=== PATIENT | female | born 1925 | race American Indian/Alaskan Native ===

== ENCOUNTER 2016-11-15 09:02 | Emergency (ER) | payer MEDICARE, MEDICAID ==
--- NOTE | 2016-11-15 09:19 | EDM.PDOC ---
<Robert Ramos Jonnathan - Last Filed: 11/15/16 12:45> ED HPI GENERAL MEDICAL PROBLEM - General Chief Complaint: Fever Stated Complaint: IN BY AMBULANCE Time Seen by Provider: 11/15/16 09:14 Source of Information: Reports: Family, Old records, RN, RN notes reviewed - Related Data Allergies Allergy/AdvReac Type Severity Reaction Status Date / Time Penicillins Allergy Cannot Verified 05/09/16 19:11 Remember Home Meds: Home Meds Aspirin [Ecotrin] 81 mg PO DAILY 10/19/13 [History] Gabapentin [Neurontin] 100 mg PO DAILY 03/07/16 [History] Simvastatin [Zocor] 20 mg PO BEDTIME 03/07/16 [History] Acetaminophen [Tylenol] 650 mg PO Q4H PRN 03/25/16 [History] Gabapentin [Neurontin] 200 mg PO BEDTIME 11/15/16 [History] Levothyroxine Sodium 1 tab PO DAILY 11/15/16 [History] amLODIPine [Norvasc] 5 mg PO DAILY 11/15/16 [History] Course - Vital Signs Last Recorded V/S: Last Vital Signs Temp 98.8 F 11/15/16 09:05 Pulse 76 11/15/16 09:05 Resp 16 11/15/16 09:05 BP 127/59 L 11/15/16 09:05 Pulse Ox 95 11/15/16 09:05 - Orders/Labs/Meds Orders: Active Orders 24 hr Category Date Time Status Peripheral IV Care [RC] . DIRECTED Care 11/15/16 10:02 Active Sodium Chloride 0.9% [Normal Saline] 1,000 ml Med 11/15/16 10:00 Active IV .BOLUS Sodium Chloride 0.9% [Saline Flush] Med 11/15/16 10:02 Active 10 ml FLUSH ASDIRECTED PRN Peripheral IV Insertion Adult [OM.PC] Stat Oth 11/15/16 10:02 Ordered Medication Orders Sodium Chloride (Normal Saline) 1,000 mls @ 250 mls/hr IV .BOLUS ONE Stop: 11/15/16 13:59 Last Admin: 11/15/16 10:37 Dose: 250 mls/hr Sodium Chloride (Saline Flush) 10 ml FLUSH ASDIRECTED PRN PRN Reason: Keep Vein Open Last Admin: 11/15/16 10:38 Dose: 10 ml Labs: Laboratory Tests 11/15/16 11/15/16 11/15/16 Range/Units 09:26 09:26 11:44 WBC 10.7 H (5.0-10.0) 10^3/uL RBC 3.60 L (4.2-5.4) 10^6/uL Hgb 10.7 L (12.0-16.0) g/dL Hct 34.4 L (37.0-47.0) % MCV 95.6 (80-100) fL MCH 29.7 (27.0-34.0) pg MCHC 31.1 L (33.0-35.0) g/dL Plt Count 243 (150-450) 10^3/uL Neut % (Auto) 82.7 H (42.2-75.2) % Lymph % (Auto) 7.1 L (20.5-50.1) % [place] % (Auto) 10.1 H (2-8) % Eos % (Auto) 0.0 L (1.0-3.0) % Baso % (Auto) 0.1 (0.0-1.0) % Sodium 136 (135-145) mmol/L Potassium 4.2 (3.6-5.0) mmol/L Chloride 101 (101-111) mmol/L Carbon Dioxide 25.0 (21.0-31.0) mmol/L Anion Gap 14.2 BUN 25 H (7-18) mg/dL Creatinine 1.1 (0.6-1.3) mg/dL Est Cr Clr Drug Dosing TNP Estimated GFR (MDRD) 47 BUN/Creatinine Ratio 22.72 Glucose 105 (74-105) mg/dL Calcium 8.2 L (8.4-10.2) mg/dl Total Bilirubin 0.7 (0.2-1.0) mg/dL AST 27 (10-42) IU/L ALT 13 (10-60) IU/L Alkaline Phosphatase 93 (42-121) IU/L B-Natriuretic Peptide 335 H (0-100) pg/ml Total Protein 6.9 (6.7-8.2) g/dl Albumin 3.2 (3.2-5.5) g/dl Globulin 3.7 Albumin/Globulin Ratio 0.86 Urine Color Yellow (YELLOW) Urine Appearance Clear (CLEAR) Urine pH 5.5 (5.0-9.0) Ur Specific [place] 1.025 (1.005-1.030) Urine Protein 30 H (NEGATIVE) Urine Glucose (UA) Negative (NEGATIVE) Urine Ketones 15 H (NEGATIVE) Urine Occult Blood Negative (NEGATIVE) Urine Nitrite Negative (NEGATIVE) Urine Bilirubin Negative (NEGATIVE) Urine Urobilinogen 1.0 (0.2-1.0) mg/dL Ur Leukocyte Esterase Negative (NEGATIVE) Urine RBC Not seen /HPF Urine WBC 0-5 (0-5/HPF) /HPF Ur Epithelial Cells Rare /HPF Urine Bacteria Few (0-FEW/HPF) /HPF Meds: Medications Generic Name Dose Route Start Last Admin Trade Name Freq PRN Reason Stop Dose Admin Sodium Chloride 1,000 mls @ 250 mls/hr 11/15/16 10:00 11/15/16 10:37 Normal Saline IV 11/15/16 13:59 250 mls/hr .BOLUS ONE Administration Sodium Chloride 10 ml 11/15/16 10:02 11/15/16 10:38 Saline Flush FLUSH 10 ml ASDIRECTED PRN Administration Keep Vein Open Discontinued Medications Generic Name Dose Route Start Last Admin Trade Name Freq PRN Reason Stop Dose Admin Oseltamivir Phosphate 75 mg 11/15/16 10:33 11/15/16 10:42 Tamiflu PO 11/15/16 10:34 75 mg ONETIME ONE Administration - Re-Assessments/Exams Free Text/Narrative Re-Assessment/Exam: 11/15/16 11:49 FOR THIS ENCOUNTER THE PATIENT WAS SEEN IN CONJUNCTION WITH [facility] STUDENT SHAUNNA GONZALES. ALL PATIENT CARE AND/OR PROCEDURE(S), DIAGNOSTIC ORDERS, MEDICATION(S) AND TREATMENT ORDERS, DISPOSITION ORDERS/PLANNING, AND DISCHARGE/FOLLOW UP INSTRUCTIONS WERE UNDER MY DIRECT SUPERVISION. gbd Departure - Departure Time of Disposition: 12:45 Disposition: Home, Self-Care 01 Condition: fair Clinical Impression: Influenza B Instructions: Influenza, Adult, [id number] Forms: ED Department Discharge Additional Instructions: Rx: Tamiflu 75mg Follow up in clinic in 3 to 5 days for recheck if needed. Return to ER if worse at any time. - My Orders Last 24 Hours: My Active Orders 11/15/16 10:00 Sodium Chloride 0.9% [Normal Saline] 1,000 ml IV .BOLUS 11/15/16 10:02 Peripheral IV Care [RC] . DIRECTED Sodium Chloride 0.9% [Saline Flush] 10 ml FLUSH ASDIRECTED PRN Peripheral IV Insertion Adult [OM.PC] Stat - Assessment/Plan Last 24 Hours: My Active Orders 11/15/16 10:00 Sodium Chloride 0.9% [Normal Saline] 1,000 ml IV .BOLUS 11/15/16 10:02 Peripheral IV Care [RC] . DIRECTED Sodium Chloride 0.9% [Saline Flush] 10 ml FLUSH ASDIRECTED PRN Peripheral IV Insertion Adult [OM.PC] Stat <Shaunna Gonzales - Last Filed: 11/15/16 13:15> ED HPI GENERAL MEDICAL PROBLEM - General Source of Information: Reports: Patient, EMS History Limitations: Reports: No limitations - History of Present Illness INITIAL COMMENTS - FREE TEXT/NARRATIVE: Patient presents to the ER this morning per [facility] with c/o fever and weakness since yesterday. EMS states her temp was 99 at home. Patient states she began feeling weak and not well last night. She states her appetite is decreased. She admits to nausea but no vomiting. Denies diarrhea, recent illness, sob, chest pain, or pain otherwise. Onset: gradual Onset Date: 11/14/16 Duration: Getting worse Location: Reports: generalized Quality: Reports: Other (weakness) Severity: moderate Improves with: Reports: None Worsens with: Reports: None Associated Symptoms: Reports: cough, fever/chills, loss of appetite, nausea/ vomiting (nausea, no vomiting), weakness. Denies: chest pain, shortness of breath Past Medical History HEENT History: Reports: Hard of hearing Cardiovascular History: Reports: High cholesterol Gastrointestinal History: Reports: Cholelithiasis Genitourinary History: Reports: UTI, recurrent Neurological History: Reports: CVA Endocrine/Metabolic History: Reports: Hyperthyroidism - Past Surgical History HEENT Surgical History: Reports: Cataract surgery GI Surgical History: Reports: Cholecystectomy Social & Family History - Family History Family Medical History: Noncontributory - Tobacco Use Smoking Status *Q: Never Smoker Years of Tobacco use: 67 Used Tobacco, but Quit: Yes Month Tobacco Last Used: december 2015 Second Hand Smoke Exposure: No - Alcohol Use Days Per Week of Alcohol Use: 0 - Recreational Drug Use Recreational Drug Use: No ED ROS GENERAL - Review of Systems Review Of Systems: ROS reveals no pertinent complaints other than HPI. ED EXAM, GENERAL - Physical Exam Exam: See Below Exam Limited By: No limitations General Appearance: alert, thin Eye Exam: bilateral eye: normal inspection Ears: normal external exam, normal canal, hearing grossly normal, normal TMs Ear Exam: bilateral ear: auricle normal, canal normal, TM normal Nose: normal inspection, normal mucosa, no blood Throat/Mouth: No airway compromise, Other (dry mucous membranes) Head: atraumatic, normocephalic Neck: normal inspection, supple, non-tender, full range of motion Respiratory/Chest: no respiratory distress, no accessory muscle use, chest non- tender, crackles (left base) Cardiovascular: normal peripheral pulses, regular rate, rhythm, no edema, no gallop, no JVD, no murmur, no rub Peripheral Pulses: 2+: radial (L), radial (R) GI/Abdominal: normal bowel sounds, soft, non tender, no organomegaly, no distention, no abnormal bruit, no mass (Female) Exam: Deferred Rectal (Female) Exam: Deferred Back Exam: normal inspection, full range of motion, NT Extremities: normal inspection, normal range of motion, non-tender, normal capillary refill, no pedal edema Neurological: alert, oriented, CN II-XII intact, normal cognition Psychiatric: normal affect, normal mood Skin Exam: Warm, Dry, Intact, Normal color, No rash Lymphatic: no adenopathy Course - Vital Signs Last Recorded V/S: Last Vital Signs Temp 98.8 F 11/15/16 09:05 Pulse 76 11/15/16 09:05 Resp 16 11/15/16 09:05 BP 127/59 L 11/15/16 09:05 Pulse Ox 95 11/15/16 09:05 - Orders/Labs/Meds Orders: Active Orders 24 hr Category Date Time Status Peripheral IV Care [RC] . DIRECTED Care 11/15/16 10:02 Active Sodium Chloride 0.9% [Normal Saline] 1,000 ml Med 11/15/16 10:00 Active IV .BOLUS Sodium Chloride 0.9% [Saline Flush] Med 11/15/16 10:02 Active 10 ml FLUSH ASDIRECTED PRN Peripheral IV Insertion Adult [OM.PC] Stat Oth 11/15/16 10:02 Ordered Medication Orders Sodium Chloride (Normal Saline) 1,000 mls @ 250 mls/hr IV .BOLUS ONE Stop: 11/15/16 13:59 Last Admin: 11/15/16 10:37 Dose: 250 mls/hr Sodium Chloride (Saline Flush) 10 ml FLUSH ASDIRECTED PRN PRN Reason: Keep Vein Open Last Admin: 11/15/16 10:38 Dose: 10 ml Labs: Laboratory Tests 11/15/16 11/15/16 11/15/16 Range/Units 09:26 09:26 11:44 WBC 10.7 H (5.0-10.0) 10^3/uL RBC 3.60 L (4.2-5.4) 10^6/uL Hgb 10.7 L (12.0-16.0) g/dL Hct 34.4 L (37.0-47.0) % MCV 95.6 (80-100) fL MCH 29.7 (27.0-34.0) pg MCHC 31.1 L (33.0-35.0) g/dL Plt Count 243 (150-450) 10^3/uL Neut % (Auto) 82.7 H (42.2-75.2) % Lymph % (Auto) 7.1 L (20.5-50.1) % [place] % (Auto) 10.1 H (2-8) % Eos % (Auto) 0.0 L (1.0-3.0) % Baso % (Auto) 0.1 (0.0-1.0) % Sodium 136 (135-145) mmol/L Potassium 4.2 (3.6-5.0) mmol/L Chloride 101 (101-111) mmol/L Carbon Dioxide 25.0 (21.0-31.0) mmol/L Anion Gap 14.2 BUN 25 H (7-18) mg/dL Creatinine 1.1 (0.6-1.3) mg/dL Est Cr Clr Drug Dosing TNP Estimated GFR (MDRD) 47 BUN/Creatinine Ratio 22.72 Glucose 105 (74-105) mg/dL Calcium 8.2 L (8.4-10.2) mg/dl Total Bilirubin 0.7 (0.2-1.0) mg/dL AST 27 (10-42) IU/L ALT 13 (10-60) IU/L Alkaline Phosphatase 93 (42-121) IU/L B-Natriuretic Peptide 335 H (0-100) pg/ml Total Protein 6.9 (6.7-8.2) g/dl Albumin 3.2 (3.2-5.5) g/dl Globulin 3.7 Albumin/Globulin Ratio 0.86 Urine Color Yellow (YELLOW) Urine Appearance Clear (CLEAR) Urine pH 5.5 (5.0-9.0) Ur Specific [place] 1.025 (1.005-1.030) Urine Protein 30 H (NEGATIVE) Urine Glucose (UA) Negative (NEGATIVE) Urine Ketones 15 H (NEGATIVE) Urine Occult Blood Negative (NEGATIVE) Urine Nitrite Negative (NEGATIVE) Urine Bilirubin Negative (NEGATIVE) Urine Urobilinogen 1.0 (0.2-1.0) mg/dL Ur Leukocyte Esterase Negative (NEGATIVE) Urine RBC Not seen /HPF Urine WBC 0-5 (0-5/HPF) /HPF Ur Epithelial Cells Rare /HPF Urine Bacteria Few (0-FEW/HPF) /HPF Meds: Medications Generic Name Dose Route Start Last Admin Trade Name Freq PRN Reason Stop Dose Admin Sodium Chloride 1,000 mls @ 250 mls/hr 11/15/16 10:00 11/15/16 10:37 Normal Saline IV 11/15/16 13:59 250 mls/hr .BOLUS ONE Administration Sodium Chloride 10 ml 11/15/16 10:02 11/15/16 10:38 Saline Flush FLUSH 10 ml ASDIRECTED PRN Administration Keep Vein Open Discontinued Medications Generic Name Dose Route Start Last Admin Trade Name Freq PRN Reason Stop Dose Admin Oseltamivir Phosphate 75 mg 11/15/16 10:33 11/15/16 10:42 Tamiflu PO 11/15/16 10:34 75 mg ONETIME ONE Administration - Radiology Interpretation Free Text/Narrative:: CXR: Abnormal, Suspicious developing pneumonitis right lung. See Rad report. CT completed. Chest CT: No acute findings. See Rad report. - My Orders Last 24 Hours: My Active Orders 11/15/16 10:00 Sodium Chloride 0.9% [Normal Saline] 1,000 ml IV .BOLUS 11/15/16 10:02 Peripheral IV Care [RC] . DIRECTED Sodium Chloride 0.9% [Saline Flush] 10 ml FLUSH ASDIRECTED PRN Peripheral IV Insertion Adult [OM.PC] Stat - Assessment/Plan Last 24 Hours: My Active Orders 11/15/16 10:00 Sodium Chloride 0.9% [Normal Saline] 1,000 ml IV .BOLUS 11/15/16 10:02 Peripheral IV Care [RC] . DIRECTED Sodium Chloride 0.9% [Saline Flush] 10 ml FLUSH ASDIRECTED PRN Peripheral IV Insertion Adult [OM.PC] Stat
--- NOTE | 2016-11-15 09:45 | CR ---
Clinical history: 89-year-old female with cough and fever. Interpretation: 1. Coarse bronchitic pattern accentuated by less than optimal inspiratory effort. 2. *Subtle asymmetric new infiltrate and/or nodular density in the periphery of the right lung (comp ared to 06 May 2016 exam). Suggest considering unenhanced CT scan of the chest. 3. Normal cardiac silhouette without new cephalization of flow, signs of alveolar edema or dependent pleural effusion. 4. No other lung mass or focal lobar consolidation. 5. No pleural effusion, pneumothorax or free subdiaphragmatic air. CONCLUSION: Abnormal. Suspicious developing pneumonitis right lung. Clinical?
[2016-11-15 09:51] LABS: CHLORIDE,CL 101 mmol/L (101-111); SODIUM,NA 136 mmol/L (135-145)
[2016-11-15 09:55] VITALS: BP 127/59
[2016-11-15] MEDS ORDERED: Sodium Chloride 0.9% 1,000 ML IV ONE (10:00)
[2016-11-15] MEDS ORDERED: Sodium Chloride 0.9% 10 ML Syringe FLUSH PRN (10:02)
[2016-11-15] MEDS ORDERED: Oseltamivir 75 MG Cap PO ONE (10:33)
--- NOTE | 2016-11-15 13:02 | CT ---
CLINICAL HISTORY: 89-year-old dehydrated female with harsh cough and influenza. Subt le asymmetric "new density right lower lobe" on PA CXR. SCAN TECHNIQUE: Volume acquisition of data from an unenhanced CT scan of the chest and abdomen karen hall with the patient lying supine on the Siemens multislice CT scanner [place], [place]. All data archived in the PACS system for storage, reformatting and study (lung/m ediastinal/abdominal soft tissue windows). INTERPRETATION: 1. Cardiomegaly and dense atheromatous calcifications ectatic dorsal aorta. No cephalization of vascular flow, signs of alveolar edema or dependent effusion. 2. Abnormal patchy atelectasis/infiltrate anterior segment right lower lobe. 3. Some peribronchial "cuffing" but no lung mass, hilar lymphadenopathy or other focal lobar consoli dation. 4. Hugely distended gallbladder right upper quadrant and multiple intraluminal calcified gallstones, most of them impacted at the gallbladder neck. Normal liver and no biliary duct dilatation. Apparen t duodenal diverticulum. 5. 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 No dissection. 6. Osteoporosis dorsal lumbar spine and insufficiency fracture (vertebra plana) T12 body. 7. Bilateral lower pole renal cysts. No signs of obstructive uropathy. CONCLUSION: Patchy right lower lobe atelectasis. *Cholelithiasis and distended gallbladder. T12 thor acic vertebral body fracture. Osteoporosis. Duodenal diverticulum. Cardiomegaly.
== END 2016-11-15 13:26 | disposition home or self-care (01) ==
LOC: DL.ED 09:02
DX: J10.1 Influenza due to other identified influenza virus with other respiratory manifestations (principal); E78.00 Pure hypercholesterolemia, unspecified; E03.9 Hypothyroidism, unspecified; Z88.1 Allergy status to other antibiotic agents; Z79.82 Long term (current) use of aspirin; Z79.899 Other long term (current) drug therapy; Z90.49 Acquired absence of other specified parts of digestive tract
CPT/HCPCS: 36415; 71010; 71250; 80053; 81001; 83880; 85025; 87804; 96360; 96361; 99284; A9270; J7030; J7050; 99283

== ENCOUNTER 2016-11-16 18:56 | Emergency (ER) | payer MEDICARE, MEDICAID ==
--- NOTE | 2016-11-16 19:25 | EDM.PDOC ---
ED HPI RENAL/ - General Chief Complaint: Genitourinary Problem Stated Complaint: IN BY AMB Time Seen by Provider: 11/16/16 19:15 Source of Information: Reports: Patient History Limitations: Reports: No limitations - History of Present Illness INITIAL COMMENTS - FREE TEXT/NARRATIVE: This 89 yo female patient reports to the ED due to hematuria. The patient was seen in the ED yesterday and diagnosed with Influenza B is currently on antivirals. The patient reports she started to notice some blood in her urine last night. The patient reports she has been staying at the [facility] for the past 2 1/2 days due to some remodeling at her house. The patient reports she moved back into her home today. The patient lives with her son and his girlfriend at her home. The patient denies any pain with urination. 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) (Tamiflu) - Related Data Allergies/ADRs: Allergies Allergy/AdvReac Type Severity Reaction Status Date / Time Penicillins Allergy Cannot Verified 11/16/16 19:04 Remember Home Meds: Home Meds Aspirin [Ecotrin] 81 mg PO DAILY 10/19/13 [History] Gabapentin [Neurontin] 100 mg PO DAILY 03/07/16 [History] Simvastatin [Zocor] 20 mg PO BEDTIME 03/07/16 [History] Acetaminophen [Tylenol] 650 mg PO Q4H PRN 03/25/16 [History] Gabapentin [Neurontin] 200 mg PO BEDTIME 11/15/16 [History] Levothyroxine Sodium 1 tab PO DAILY 11/15/16 [History] amLODIPine [Norvasc] 5 mg PO DAILY 11/15/16 [History] Past Medical History HEENT History: Reports: Hard of hearing Cardiovascular History: Reports: High cholesterol Gastrointestinal History: Reports: Cholelithiasis Genitourinary History: Reports: UTI, recurrent Neurological History: Reports: CVA Endocrine/Metabolic History: Reports: Hyperthyroidism - Past Surgical History HEENT Surgical History: Reports: Cataract surgery GI Surgical History: Reports: Cholecystectomy Social & Family History - Family History Family Medical History: Noncontributory - Tobacco Use Smoking Status *Q: Never Smoker Years of Tobacco use: 67 Used Tobacco, but Quit: Yes Month Tobacco Last Used: december 2015 Second Hand Smoke Exposure: No - Caffeine Use Caffeine Use: Reports: Soda - Alcohol Use Days Per Week of Alcohol Use: 0 - Recreational Drug Use Recreational Drug Use: No ED ROS GENERAL - Review of Systems Review Of Systems: See Below Constitutional: Reports: no symptoms HEENT: Reports: No symptoms Respiratory: Reports: cough Cardiovascular: Reports: No symptoms Endocrine: Reports: no symptoms GI/Abdominal: Reports: No symptoms : Reports: hematuria Musculoskeletal: Reports: no symptoms Skin: Reports: no symptoms Neurological: Reports: no symptoms Psychiatric: Reports: No symptoms Hematologic/Lymphatic: Reports: no symptoms Immunologic: Reports: no symptoms ED EXAM, RENAL/ - Physical Exam Exam: See Below Exam Limited By: No limitations General Appearance: alert, WD/WN, mild distress, thin Eye Exam: bilateral eye: EOMI, normal inspection, PERRL Ears: normal external exam, normal canal, hearing grossly normal, normal TMs Nose: normal inspection, normal mucosa, no blood Throat/Mouth: Normal inspection, Normal lips, Normal teeth, Normal gums, Normal oropharynx, Normal voice, No airway compromise Head: atraumatic, normocephalic Neck: normal inspection, supple, non-tender, full range of motion Respiratory/Chest: no respiratory distress, lungs clear, normal breath sounds, no accessory muscle use, chest non-tender Cardiovascular: normal peripheral pulses, regular rate, rhythm, no edema, no gallop, no JVD, no murmur, no rub GI/Abdominal: normal bowel sounds, soft, non tender, no organomegaly, no distention, no abnormal bruit, no mass (Female) Exam: Other (nursing staff report the patient had toilet paper in her kim area, but no current bleeding while getting a urine sample by catheter. ) Rectal (Female) Exam: Deferred Back Exam: normal inspection, full range of motion, NT Extremities: normal inspection, normal range of motion, non-tender, normal capillary refill, no pedal edema Neurological: alert, oriented, CN II-XII intact, normal cognition, normal gait, normal reflexes, no motor/sensory deficits Psychiatric: normal affect, normal mood Skin Exam: Warm, Dry, Intact, Normal color, No rash Lymphatic: no adenopathy Course - Vital Signs Last Recorded V/S: Last Vital Signs Temp 36.8 C 03/03/17 19:49 Pulse 72 11/16/16 19:49 Resp 18 11/16/16 19:49 BP 113/57 L 11/16/16 19:49 Pulse Ox 97 11/16/16 19:49 - Orders/Labs/Meds Labs: Laboratory Tests 11/16/16 11/16/16 11/16/16 Range/Units 19:11 19:30 19:30 WBC 6.0 (5.0-10.0) 10^3/uL RBC 3.50 L (4.2-5.4) 10^6/uL Hgb 10.5 L (12.0-16.0) g/dL Hct 33.4 L (37.0-47.0) % MCV 95.4 (80-100) fL MCH 30.0 (27.0-34.0) pg MCHC 31.4 L (33.0-35.0) g/dL Plt Count 208 (150-450) 10^3/uL Neut % (Auto) 71.3 (42.2-75.2) % Lymph % (Auto) 14.5 L (20.5-50.1) % [place] % (Auto) 13.7 H (2-8) % Eos % (Auto) 0.2 L (1.0-3.0) % Baso % (Auto) 0.3 (0.0-1.0) % Sodium 135 (135-145) mmol/L Potassium 4.1 (3.6-5.0) mmol/L Chloride 100 L (101-111) mmol/L Carbon Dioxide 26.0 (21.0-31.0) mmol/L Anion Gap 13.1 BUN 24 H (7-18) mg/dL Creatinine 0.8 (0.6-1.3) mg/dL Est Cr Clr Drug Dosing 34.24 mL/min Estimated GFR (MDRD) > 60 BUN/Creatinine Ratio 30.00 Glucose 87 (74-105) mg/dL Calcium 8.0 L (8.4-10.2) mg/dl Total Bilirubin 0.4 (0.2-1.0) mg/dL AST 31 (10-42) IU/L ALT 14 (10-60) IU/L Alkaline Phosphatase 87 (42-121) IU/L Total Protein 6.8 (6.7-8.2) g/dl Albumin 3.1 L (3.2-5.5) g/dl Globulin 3.7 Albumin/Globulin Ratio 0.84 Urine Color Yellow (YELLOW) Urine Appearance Slightly cloudy (CLEAR) Urine pH 6.5 (5.0-9.0) Ur Specific [place] 1.020 (1.005-1.030) Urine Protein 30 H (NEGATIVE) Urine Glucose (UA) Negative (NEGATIVE) Urine Ketones Negative (NEGATIVE) Urine Occult Blood Negative (NEGATIVE) Urine Nitrite Negative (NEGATIVE) Urine Bilirubin Negative (NEGATIVE) Urine Urobilinogen >=8.0 H (0.2-1.0) mg/dL Ur Leukocyte Esterase Negative (NEGATIVE) Urine RBC 0-5 /HPF Urine WBC 0-5 (0-5/HPF) /HPF Amorphous Sediment Rare (0/HPF) /HPF Urine Bacteria Moderate H (0-FEW/HPF) /HPF Departure - Departure Time of Disposition: 20:00 Disposition: Home, Self-Care 01 Condition: fair Clinical Impression: Pressure sore Qualifiers: Pressure ulcer location: buttock Pressure ulcer stage: unspecified pressure ulcer stage Laterality: unspecified laterality Qualified Code(s): L89.309 - Pressure ulcer of unspecified buttock, unspecified stage Instructions: How to Take a Sitz Bath Forms: ED Department Discharge Care Plan Goals: The patient and family were advised of the examination and lab results during the visit. The patient was encouraged to continue to monitor her symptoms. The patient should take a Sitz bath daily (instructions given). If the patient has any additional symptoms or concerns, the patient should follow-up with her primary care facility or return to the emergency department.
[2016-11-16 19:49] VITALS: BP 113/57
[2016-11-16 19:52] LABS: CHLORIDE,CL 100 mmol/L (101-111); SODIUM,NA 135 mmol/L (135-145)
== END 2016-11-16 20:19 | disposition home or self-care (01) ==
LOC: DL.ED 18:56
DX: L89.309 Pressure ulcer of unspecified buttock, unspecified stage (principal); E78.00 Pure hypercholesterolemia, unspecified; E05.90 Thyrotoxicosis, unspecified without thyrotoxic crisis or storm; Z98.49 Cataract extraction status, unspecified eye; Z90.49 Acquired absence of other specified parts of digestive tract; Z88.0 Allergy status to penicillin; Z79.82 Long term (current) use of aspirin; Z87.440 Personal history of urinary (tract) infections; Z79.899 Other long term (current) drug therapy
CPT/HCPCS: 36415; 80053; 81001; 85025; 99283; 99284